=== PATIENT | male | born 1960 | race Caucasian/White ===

== ENCOUNTER 2017-10-09 11:45 | Emergency (ER) | payer OTHER ==
[2017-10-09 11:56] VITALS: BP 163/84
--- NOTE | 2017-10-09 12:03 | UC ---
Palpitation/Dysrhythmia HP - HPI Summary HPI Summary: This is go Quijano documenting for attending Elana Dove MD. This patient is a 56 year old M presenting [place] [facility] [place] a chief complaint of rapid palpitations that began yesterday after working outside, currently the patient is having no CP or dizziness. Pt states he has gotten tired easily since receiving radiation for prostate cancer 2 years ago, yesterday while working outside he began feeling tired and went inside to sit down. An hour after he sat down his heart began to race, he took his pulse which was 118, and 45 minutes later he states the pulse was still 118. P t states his BP was elevated in the 160s systolic. Pt states had a restless night but fell asleep after 2am. Sx resolved when awoke this morning. The patient rates the pain 0/ 10 in severity. Patient reports dizziness, increased HR, feeling weird, being red in the face, clammy, and a strange sensation in the right side of his face yesterday. No symptoms at present. Pt states this am his BP was 180 systolic so came to be checked. . Patient denies nausea, ABD pain, current fatigue, and back pain. No family hx of CAD. No cardiac hx. Pt has DM with peripheral neuropathy and elevated cholesterol. No tobacco use. No cardiac eval. Patients medication reviewed this visit, he takes 81mg ASA daily and took it this morning. Medications reviewed this visit - History of Current Complaint Stated Complaint: BP HIGH CHEST PAIN HEART POUNDING Time Seen by Provider: 10/09/17 11:51 Hx Obtained From: Patient Onset/Duration: Lasting Hours Severity Initially: Mild Severity Currently: None Pain Intensity: 0 Pain Scale Used: 0-10 Numeric Character: Pounding Alleviating Factor(s): Other - spontaneous Associated Signs & Symptoms: Positive: Dizzy, Diaphoresis - "clammy". Negative : Nausea - Allergy/Home Medications Allergies/Adverse Reactions: Allergies Allergy/AdvReac Type Severity Reaction Status Date / Time No Known Allergies Allergy Verified 10/09/17 11:57 Home Medications: Home Medications Aspirin [Ecotrin Low Strength] 81 mg PO DAILY 10/09/17 [History Confirmed ] Dapagliflozin Propanediol [Farxiga] 5 mg PO DAILY 10/09/17 [History Confirmed ] Exenatide Microspheres [Bydureon] 2 mg SC WEEKLY 10/09/17 [History Confirmed ] Flaxseed Oil 1,000 mg PO DAILY 10/09/17 [History Confirmed 10/09/17] Linagliptin (NF) [Tradjenta (NF)] 5 mg PO DAILY 10/09/17 [History Confirmed ] Metformin HCl 1,000 mg PO BID 10/09/17 [History Confirmed 10/09/17] Multivitamin [Multivitamins] 1 cap PO DAILY 10/09/17 [History Confirmed 10/09/17 ] Omeprazole 20 mg PO DAILY 10/09/17 [History Confirmed 10/09/17] Rosuvastatin Calcium 10 mg PO DAILY 10/09/17 [History Confirmed 10/09/17] Tamsulosin CAP* [Flomax CAP*] 0.4 mg PO DAILY 10/09/17 [History Confirmed ] diPHENhydraMINE PO* [Benadryl PO 25 MG TAB*] 25 mg PO BEDTIME PRN 10/09/17 [ History Confirmed 10/09/17] hydrOXYzine HCl [Hydroxyzine HCl] 50 mg PO DAILY PRN 10/09/17 [History Confirmed 10/09/17] PMH/Surg Hx/FS Hx/Imm Hx Endocrine History: Diabetes Cardiovascular History: Other Other Cardiovascular History: HLD GI/ History: Gastroesophageal Reflux Cancer History: Prostate Cancer - Surgical History Surgical History: Yes Surgery Procedure, Year, and Place: Radioactive seed placement for prostate ca - Family History Known Family History: Positive: Hypertension Negative: Cardiac Disease, Respiratory Disease, Seizure Disorder - Social History Alcohol Use: Occasionally Substance Use Type: None Smoking Status (MU): Never Smoked Tobacco Review of Systems Constitutional: Other - "feeling weird" and feeling clammy Skin: Other - "red in the face" ENT: Other - strange sensation on the right side of his face. Cardiovascular: Palpitations Neurological: Other - dizziness All Other Systems Reviewed And Are Negative: Yes Physical Exam - Summary Physical Exam Summary: Vital Signs Reviewed: Yes A+Ox3, no distress Eyes: Conjunctiva Clear, JOSE. EOM intact and full ENT: Hearing grossly normal TM x 2 clear, mmoist, uvula midline, no exudate, no erythema Neck: Positive: Supple Respiratory: Positive: No respiratory distress, No accessory muscle use + CTA throughout no w/r Cardiovascular: RRR nl s1, s2 no m/r CBT <2 sec no bruits b/l abd soft + BS nt/nd no guarding, no distension Musculoskeletal Exam: COREA x 4 without difficulty Strength Intact, ROM Intact Neurological: Positive: Alert, + sensation throughout Psychological: Positive: Normal Response To Family Skin: Positive: no rash, no ecchymosis Triage Information Reviewed: Yes Vital Signs: Initial Vital Signs Pulse 70 10/09/17 11:53 Resp 19 10/09/17 11:53 BP 163/84 10/09/17 11:53 Pulse Ox 95 10/09/17 11:53 Diagnostics - EKG Cardiac Rate: NL - taken at 1134 Cardiac Rhythm: Sinus: Normal - at 63 BPM , Other Rhythm: Normal - no acute ST/ T wave changes Palpitations Course/Dx - Course Course Of Treatment: Blood pressure noted and patient informed - pt going to ED for further eval. Patient presents to urgent care with complaints of palpitations and elevated blood pressure last night after working outside. Patient states he had a restless night. Patient states during this time he also felt cold and clammy but his face was flushed. This morning patient woke with no symptoms. The patient states his blood pressure was high so he came. Patient without any complaints upon presentation. Patient's EKG sinus without any acute changes. Patient's blood pressure was noted be elevated but reports his vitals were non-concerning. Physical exam with no acute findings. Recommend patient to emergency department for further evaluation. Patient's symptom free's okay to go by private car. Patient in agreement with plan. Patient will cough pullover call 911 with any symptoms develop. ED providers in the ED where patient coming. Patient took aspirin this morning suddenly continued care. - Differential Dx/Diagnosis Provider Diagnoses: palpitations. elevated BP - Physician Notifications Discussed Patient Care With: Beto Abdi Time Discussed With Above Provider: 12:23 Instructed by Provider To: Other - I informed _ of the patient's case. Discharge - Sign-Out/Discharge Documenting (check all that apply): Patient Departure - Discharge Plan Condition: Stable Disposition: HOME-RECOMMEND TO ED Patient Education Materials: Heart Palpitations (ED) Referrals: No Primary Care Phys,NOPCP [Primary Care Provider] - Additional Instructions: The doctor that evaluated you recommends you go directly to the emergency department at [facility]. You may require additional testing and evaluation of your right arm to determine the cause of your discomfort . The emergency department has been notified you have been referred to them for further treatment. If your symptoms change or you have any concerns, chain puller and call 911 - Billing Disposition and Condition Condition: STABLE Disposition: Home-Recommend to ED
== END 2017-10-09 12:30 | disposition home health service (06) ==
LOC: UCEAST 11:45
DX: R00.2 Palpitations (principal); R03.0 Elevated blood-pressure reading, without diagnosis of hypertension; C61 Malignant neoplasm of prostate; E11.9 Type 2 diabetes mellitus without complications; K21.9 Gastro-esophageal reflux disease without esophagitis; E78.5 Hyperlipidemia, unspecified; Z79.4 Long term (current) use of insulin; Z92.3 Personal history of irradiation; Z79.899 Other long term (current) drug therapy; Z79.84 Long term (current) use of oral hypoglycemic drugs
CPT/HCPCS: 93005; 99202; G0463

== ENCOUNTER 2017-10-09 12:49 | Emergency (ER) | payer OTHER ==
--- NOTE | 2017-10-09 13:19 | ED ---
Palpitations / Dysrhythmia - HPI Summary HPI Summary: This is scribe Paula Tejeda documenting for attending Beto Abdi MD. Pt is a 56 y/o M referred from [facility] who presents to ED c/o palpitations characterized fast and pounding. Sx began yesterday, about 1 hour after going inside from doing work outside. Palpitations are currently resolved, having no symptoms today. Additionally notes diaphoresis, his sister describing it as "cold and clammy" last night, as well as slight dizziness [employer]. Denies any CP, though states "it was not normal." Currently, pt feels "alright, not great" and does not have any palpitations. States that he was able to sleep last night until about 0200, at which time he woke up and was restless, unable to fall back asleep. - History of Current Complaint Chief Complaint: EDDysrhythmPalp Time Seen by Provider: 10/09/17 13:06 Hx Obtained From: Patient Onset/Duration: Lasting Days - Started yesterday, Resolved Severity Currently: None Character: Fast, Pounding Aggravating: Nothing Alleviating: Nothing Associated Signs & Symptoms: Diaphoresis - Allergy/Home Medications Allergies/Adverse Reactions: Allergies Allergy/AdvReac Type Severity Reaction Status Date / Time No Known Allergies Allergy Verified 10/09/17 11:57 Home Medications: Home Medications Aspirin EC TAB* [Ecotrin EC Low Dose 81 MG*] 81 mg PO DAILY 10/09/17 [History Confirmed 10/09/17] Dapagliflozin Propanediol [Farxiga] 10 mg PO DAILY 10/09/17 [History Confirmed 10/09/17] Exenatide VIAL (NF) [Bydureon (NF)] 2 mg SUBCUT WEEKLY 10/09/17 [History Confirmed 10/09/17] Fexofenadine (NF) [Merary 180 (NF)] 180 mg PO QAM 10/09/17 [History Confirmed 10/09/17] Flaxseed Oil 1,000 mg PO QPM 10/09/17 [History Confirmed 10/09/17] Gabapentin CAP(*) [Neurontin 300 CAP(*)] 300 mg PO BEDTIME 10/09/17 [History Confirmed 10/09/17] Linagliptin (NF) [Tradjenta (NF)] 5 mg PO QPM 10/09/17 [History Confirmed ] Multivitamins/Minerals TAB* [Theragran/minerals TAB*] 1 tab PO QAM 10/09/17 [ History Confirmed 10/09/17] Omeprazole CAP* [Prilosec CAP* 20 MG] 20 mg PO QAM 10/09/17 [History Confirmed 10/09/17] Rosuvastatin (NF) [Crestor (NF)] 10 mg PO BEDTIME 10/09/17 [History Confirmed ] hydrOXYzine HCL TAB* [Atarax TAB 50 MG *] 50 mg PO BEDTIME PRN 10/09/17 [ History Confirmed 10/09/17] metFORMIN* [Glucophage 1000 MG TAB *] 1,000 mg PO BID 10/09/17 [History Confirmed 10/09/17] PMH/Surg Hx/FS Hx/Imm Hx Endocrine/Hematology History: Reports: Hx Diabetes Cardiovascular History: Reports: Hx Hypertension - Cancer History Cancer Type, Location and Year: Prostate CA - Surgical History Surgery Procedure, Year, and Place: Radioactive seed placement for prostate ca Infectious Disease History: No Infectious Disease History: Denies: Traveled Outside the [place] in Last 30 Days - Family History Known Family History: Positive: Hypertension, Diabetes - Father Negative: Cardiac Disease, Respiratory Disease, Seizure Disorder - Social History Alcohol Use: Occasionally Substance Use Type: Reports: None Smoking Status (MU): Never Smoked Tobacco Review of Systems Positive: Skin Diaphoresis Positive: Palpitations. Negative: Chest Pain Neurological: Other - Dizziness All Other Systems Reviewed And Are Negative: Yes Physical Exam - Summary Physical Exam Summary: Appearance: The patient is well-nourished in no acute distress and in no acute pain. Skin: The skin is warm and dry and skin color reflects adequate perfusion. HEENT: The head is normocephalic and atraumatic. The pupils are equal and reactive. The conjunctivae are clear and without drainage. Nares are patent and without drainage. Mouth reveals moist mucous membranes and the throat is without erythema and exudate. The external ears are intact. The ear canals are patent and without drainage. The tympanic membranes are intact. Neck: The neck is supple with full range of motion and non-tender. There are no carotid bruits. There is no neck vein distension. Respiratory: Chest is non-tender. Lungs are clear to auscultation and breath sounds are symmetrical and equal. Cardiovascular: Heart is regular rate and rhythm. There is no murmur or rub auscultated. There is no peripheral edema and pulses are symmetrical and equal. Abdomen: The abdomen is soft and non-tender. There are normal bowel sounds heard in all four quadrants and there is no organomegaly palpated. Musculoskeletal: There is no back tenderness noted. Extremities are non-tender with full range of motion. There is good capillary refill. There is no peripheral edema or calf tenderness elicited. Neurological: Patient is alert and oriented to person, place and time. The patient has symmetrical motor strength in all four extremities. Cranial nerves are grossly intact. Deep tendon reflexes are symmetrical and equal in all four extremities. Psychiatric: The patient has an appropriate affect and does not exhibit any anxiety or depression. Triage Information Reviewed: Yes Vital Signs On Initial Exam: Initial Vitals Temp Pulse Resp BP Pulse Ox 98 F 73 16 163/93 98 10/09/17 12:51 10/09/17 12:51 10/09/17 12:51 10/09/17 12:51 10/09/17 12:51 Vital Signs Reviewed: Yes Diagnostics - Vital Signs Vital Signs Temp Pulse Resp BP Pulse Ox 10/09/17 12:51 98 F 73 16 163/93 98 - Laboratory Result Diagrams: 10/09/17 13:51 10/09/17 14:43 Lab Statement: Any lab studies that have been ordered have been reviewed, and results considered in the medical decision making process. - Radiology CXR Xray Interpretation: No Acute Changes - NO ACTIVE CARDIOPULMONARY DISEASE. ED physician reviewed this report. Radiology Interpretation Completed By: Radiologist - EKG 1355 Cardiac Rate: NL - 65 bpm EKG Rhythm: Sinus Rhythm ST Segment: Normal Ectopy: None EKG Interpretation: No STEMI Re-Evaluation - Re-Evaluation First Eval Re-Evaluation Time: 17:20 Comment: Discussed results. Course/Dx - Course Course Of Treatment: Mr. Coleman presents to the emergency department complaining of a dramatic episode of heart racing accompanied by dizziness and chest pressure yesterday. He feels fine today. He was kept on the monitor while labs were checked including troponin and EKG. Nothing dangerous was found and I recommended close follow-up. He lives in [place] and has a physician there but is not going back 3 months so he was given the [facility] information. - Diagnoses Provider Diagnoses: Palpitations Discharge - Sign-Out/Discharge Documenting (check all that apply): Patient Departure - Discharge - Discharge Plan Condition: Stable Disposition: HOME Patient Education Materials: Heart Palpitations (ED) Referrals: No Primary Care Phys,NOPCP [Primary Care Provider] - [facility] [Outside] - 3 Days Additional Instructions: RETURN TO ED FOR ANY NEW OR WORSENING SYMPTOMS. - Billing Disposition and Condition Condition: STABLE Disposition: Home
[2017-10-09 14:02] LABS: ABS Basophils 0 10^3/ul (0-0.2); ABS Eosinophils 0.3 10^3/ul (0-0.6); ABS Monocytes 0.5 10^3/ul (0-0.8); ABS Neutrophils 4.2 10^3/ul (1.5-7.7); ABS Nucleated RBC 0 10^3/ul; Eosinophil % 4.9 % (0-6); Hematocrit 43 % (42-52); Hemoglobin 14.4 g/dl (14.0-18.0); Mean Corpuscular HGB Conc 34 g/dl (31-36); Mean Corpuscular Hemoglobin 28 pg (27-31); Mean Corpuscular Volume 84 fL (80-94); Mean Platelet Volume 7.7 um3 (7.4-10.4); Nucleated Red Blood Cells % 0; Platelet Count 285 10^3/ul (150-450); Red Blood Count 5.07 10^6/ul (4.00-5.40); Red Cell Distribution Width 14 % (10.5-15); White Blood Count 6.1 10^3/ul (3.5-10.8)
--- NOTE | 2017-10-09 14:27 | RAD ---
HISTORY: CP chest pain COMPARISONS: None VIEWS: 1: frontal portable view of the chest at 2:00 PM FINDINGS: LINES AND TUBES: None. CARDIOMEDIASTINAL SILHOUETTE: The cardiomediastinal silhouette is normal for portable technique. PLEURA: The costophrenic angles are sharp. No pleural abnormalities are noted. LUNG PARENCHYMA: The lungs are clear. ABDOMEN: The upper abdomen is clear. There is no subphrenic gas. BONES AND SOFT TISSUES: No bone or soft tissue abnormalities are noted. IMPRESSION: NO ACTIVE CARDIOPULMONARY DISEASE.
[2017-10-09 17:23] VITALS: BP 138/82
[2017-10-09 17:24] LABS: Urine Appearance Clear; Urine Blood Negative (Negative); Urine Color Yellow; Urine Ketones Trace (Negative); Urine Protein Negative (Negative); Urine Specific Gravity 1.021 (1.010-1.030); Urine Urobilinogen Negative (Negative)
== END 2017-10-09 17:30 | disposition home or self-care (01) ==
LOC: ED 12:49
DX: R00.2 Palpitations (principal); I10 Essential (primary) hypertension; E11.9 Type 2 diabetes mellitus without complications; Z79.899 Other long term (current) drug therapy; Z79.84 Long term (current) use of oral hypoglycemic drugs
CPT/HCPCS: 36415; 71045; 80053; 81003; 83605; 83735; 84443; 84484; 85025; 85379; 85610; 93005; 99283